=== PATIENT | female | born 1975 | race Hispanic/Latino ===

== ENCOUNTER 2024-08-09 21:41 | Emergency (ER) | payer OTHER, SELFPAY ==
[2024-08-09 21:49] VITALS: BP 113/75
[2024-08-10 00:09] VITALS: BMI 25.0
[2024-08-10 00:17] VITALS: BP 135/88
[2024-08-10] MEDS: TORADOL 60 MG IM (00:29)
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
== END 2024-08-10 00:48 | disposition home or self-care (01) ==
LOC: EMR 21:41
PROVIDERS: EMERGENCY PHYSICIAN Emergency Medicine; FAMILY PHYSICIAN General Practice
DX: S16.1XXA Strain of muscle, fascia and tendon at neck level, initial encounter (principal); W19.XXXA Unspecified fall, initial encounter; Y99.0 Civilian activity done for income or pay
CPT/HCPCS: 99284; 96372; 70450; 72125